=== PATIENT | female | born 1950 | race Caucasian/White ===

== ENCOUNTER 2022-04-10 11:26 | Inpatient (IN) ==
[2022-04-10] MEDS ORDERED: fentaNYL citrate 100 MCG/2 ML VIAL IV STA (11:49)
[2022-04-10] MEDS ORDERED: ONDANSETRON INJ 2 MG/ML 2 ML VIAL IV STA (11:49)
[2022-04-10] MEDS ORDERED: SODIUM CHLORIDE 0.9% 1000ML 1,000 ML IV ONE (11:49)
--- NOTE | 2022-04-10 11:55 | Emergency Department Note ---
Impression & Plan Intra-abdominal abscess, Diverticulitis, Diverticulitis of intestine with abscess ED Provider Note HISTORY OF PRESENT ILLNESS: Patient is a 71-year-old female presenting with generalized abdominal pain and constipation. Patient reports she has not had any output from her rectum or bowel movement in the last 5.5 weeks. Reports that this has happened to her in the past and she has been on a very strict constipation regimen, including Dulcolax and stool softeners and laxative, without any improvement in her symptoms. Denies any fevers. Currently complaining of progressively worsening abdominal pain over the last week or so in her bilateral lower quadrants. Patient reports dysuria over the last few days. Reports nausea over the last few weeks as well but no vomiting. She reports that she is not passing flatus. Reports an abdominal surgical history of section. ROS: Constitutional: No fever, chills, or weakness Skin: No rash or diaphoresis HENT: No headaches or congestion Eyes: No vision changes Cardio: No chest pain, palpitations or leg swelling Respiratory: No cough, wheezing or shortness of breath GI: No vomiting, diarrhea +constipation; +nausea : No polyuria +dysuria MSK: No joint or back pain Neuro: No loss of sensation, confusion, focal deficits, numbness, tingling Psychiatric: No mood changes PHYSICAL EXAM: Constitutional: Patient appears in no acute distress. HENT: Head: Normocephalic and atraumatic. Eyes: EOMI, PERRL Mouth/Throat: Mucous membranes moist. Neck: Trachea midline. Neck supple. Cardiovascular: RRR, No murmurs, rubs or gallops. Intact distal pulses. Pulmonary/Chest: No respiratory distress. Breath sounds clear and equal bilaterally. No wheezes or rales. No chest wall tenderness to palpation. Abdominal: Abdomen soft, no rebound or guarding. Decreased bowel sounds throughout abdomen. TTP in suprapubic and LLQ. Back: No midline spinal tenderness, no paraspinal tenderness, no CVA tenderness. Musculoskeletal: No edema, tenderness or deformity noted. Skin: Warm and dry. No rash, erythema, pallor or cyanosis Psychiatric: Appropriate mood and affect for situation. Neurological: Alert and keenly responsive. CN II-XII grossly intact, moving all extremities equally and fully. MDM: - Vitals signs stable. - Laboratory workup showed leukocytosis (WBC 13.35) with neutrophilic shift; stable electrolytes - UA negative for infection. - CT abdomen/pelvis with IV contrast showed multiloculated fluid collection within the midline pelvis suggestive of an abscess measuring up to 5.9 cm with associated sinus tract extending towards the sigmoid colon. Abscess abuts the vaginal cuff concerning for possible fistula connection with the vagina. Also noted to have a moderate fecal retention without obvious obstruction - Patient given IV zosyn. - Consulted general surgery at [facility]. They reported that the patient's abscess would need to be drained by IR and she will need transfer. - Patient requesting transfer to [place], closer to where her family is. - [facility] contacted. Spoke with interventional radiologist who was agre eable to performing procedure. Hospitalist Dr. Roach at [place] accepted patient for transfer at 16:47 on 04/10/2022. Awaiting bed assignment at this time. ASSESSMENT AND PLAN: Diagnosis: intra-abdominal abscess due to diverticulitis; leukocytosis Plan: transfer Past Med/Surg History Social History Smoking Status: Former smoker Feels Safe at Home: Yes Allergies Allergies Allergy/AdvReac Type Severity Reaction Status Date / Time cephalexin [From Keflex] Allergy Severe Swelling Verified 04/10/22 17:35 of Lip/Tongue/Throat ciprofloxacin [From Cipro] Allergy Severe Swelling Verified 04/10/22 17:35 of Lip/Tongue/Throat Penicillins Allergy Severe Swelling Verified 04/10/22 17:35 of Lip/Tongue/Throat Sulfa (Sulfonamide Allergy Severe Swelling Verified 04/10/22 17:35 Antibiotics) of Lip/Tongue/Throat hydromorphone [From Dilaudid] AdvReac Severe Confusion Verified 04/10/22 17:35 Home Meds Home Medications Medication Instructions Recorded Confirmed alprazolam 0.5 mg tablet 0.5 mg PO HS 04/10/22 04/10/22 alprazolam 0.5 mg tablet 0.5 mg PO QAM PRN Anxiety 04/10/22 04/10/22 ergocalciferol (vitamin D2) 1,250 1,250 mcg PO .Sundays04/10/22 04/10/22 mcg (50,000 unit) capsule (Vitamin D2) fluticasone 500 mcg-salmeterol 50 1 ea inhalation AMPM 04/10/22 04/10/22 mcg/dose blistr powdr for inhalation furosemide 40 mg tablet 40 mg PO DAILY PRN Fluid Retention 04/10/22 04/10/22 ibuprofen 800 mg tablet (IBU) 800 mg PO BID PRN arthritis pain 04/10/22 04/10/22 insulin NPH isoph U-100 human 100 40 unit subcut AMPM 04/10/22 04/10/22 unit/mL subcutaneous suspension (Humulin N NPH U-100 Insulin (isophane susp)) insulin lispro 100 unit/mL 0 unit subcut UD 04/10/22 04/10/22 subcutaneous solution (Humalog U-100 Insulin) oxycodone-acetaminophen 10 mg-325 1 - 2 tab PO Q6 PRN Pain 04/10/22 04/10/22 mg tablet potassium chloride 10 mEq 10 meq PO DAILY PRN if taking 04/10/22 04/10/22 tablet,extended release furosemide Results & Data (ED) Vital Signs Vital Signs - 24 hr 04/10/22 11:28 04/10/22 14:14 04/10/22 17:02 Temperature 36.7 C Temperature Source Temporal Artery Scan Pulse Rate 98 H Pulse Rate [Left Finger] 89 98 H Pulse Rhythm Regular Pulse Rhythm [Left Finger] Regular Regular Pulse Strength Normal Pulse Strength [Left Finger] Normal Normal Respiratory Rate 20 18 18 Respiratory Effort / Characteristics Non-Labored Spontaneous Non-Labored Spontaneous Non-Labored Respiratory Depth Normal Normal Normal Respiratory Pattern Regular Regular Regular Blood Pressure 136/54 L Blood Pressure [Right Arm] 138/63 120/72 Blood Pressure Mean 81 Blood Pressure Mean [Right Arm] 88 88 Blood Pressure Position Sitting Blood Pressure Position [Right Arm] Lying Lying Pulse Oximetry 97 97 97 Oxygen Delivery Method Room Air Room Air Room Air Sepsis Recent Fever Within 48 Hours No Sepsis New/Unexplained Change in Mental Status N/A Sepsis Action Taken by Nursing No Action Required Laboratory Data Result diagrams: 04/10/22 12:07 04/10/22 12:07 Lab Results 04/10/22 04/10/22 04/10/22 Range/Units 11:57 12:07 12:07 WBC 13.35 H (4.8-10.8) K/ul RBC 4.27 (3.93-5.22) M/uL Hgb 13.1 (12.0-16.0) g/dl Hct 37.6 (34.1-44.9) % MCV 88.1 (80.0-100.0) fL MCH 30.7 (25.0-34.0) pg MCHC 34.8 (32.0-36.0) g/dL RDW Std Deviation 38.1 (36.4-46.3) fL RDW Coeff of Vani 11.8 (11.5-14.5) % Plt Count 310 (130-400) K/uL MPV 9.6 (9.4-12.3) fL Immature Gran % (Auto) 0.4 % Neut % (Auto) 73.0 % Lymph % (Auto) 18.1 % [place] % (Auto) 7.5 % Eos % (Auto) 0.6 % Baso % (Auto) 0.4 % Neut # (Auto) 9.75 H (1.4-6.5) K/uL Lymph # (Auto) 2.42 (1.2-3.4) K/uL [place] # (Auto) 1.00 H (0.24-0.82) K/uL Eos # (Auto) 0.08 (0-0.50) K/uL Baso # (Auto) 0.05 (0-0.2) K/uL Immature Gran # (Auto) 0.05 H (0.00-0.02) K/uL Sodium 134 L (136-145) mmol/L Potassium 3.7 (3.5-5.1) mmol/L Chloride 99 (98-107) mmol/L Carbon Dioxide 29 (21-32) mmol/L Anion Gap 6 (3-11) BUN 12 (6-23) mg/dl Creatinine 0.67 (0.6-1.2) mg/dl Est Cr Clr Drug Dosing 72.9 ml/min Est GFR ( Amer) 102.5 ml/min Est GFR (Non-Af Amer) 88.4 ml/min BUN/Creatinine Ratio 17.9 (10-20) Glucose 180 H (70-99(Fasting)) mg/dl Calcium 9.4 (8.5-10.1) mg/dl Magnesium 1.9 (1.7-2.4) mg/dl Total Bilirubin 1.2 H (0.2-1.0) mg/dl AST 8 L (13-39) U/L ALT 7 (7-52) U/L Alkaline Phosphatase 57 (34-104) U/L Total Protein 6.7 (6.0-8.3) gm/dl Albumin 3.9 (3.4-5.0) gm/dl Globulin 2.8 (2.5-4.0) gm/dl Albumin/Globulin Ratio 1.4 (0.9-2) Urine Color Dark Yellow Urine Appearance Clear (Clear) Urine pH 5.5 (4.5-7.5) Ur Specific [place] 1.029 (1.000-1.030) Urine Protein 2+ H (Negative) Urine Glucose (UA) 1+ H (Negative) Urine Ketones 1+ H (Negative) Urine Blood Negative (Negative) Urine Nitrite Negative (Negative) Urine Bilirubin Negative (Negative) Urine Urobilinogen Negative (Negative) Ur Leukocyte Esterase Trace H (Negative) Urine WBC (Auto) 1-5 (0-5) /hpf Urine RBC (Auto) 0-4 (0-4) /hpf U Hyaline Cast (Auto) 10-30 H (0-5) /lpf U Epithel Cells (Auto) >30 H (0-5) /lpf Urine Bacteria (Auto) Negative (Negative) SARS-CoV-2 (PCR) (Negative) 04/10/22 Range/Units 14:47 WBC (4.8-10.8) K/ul RBC (3.93-5.22) M/uL Hgb (12.0-16.0) g/dl Hct (34.1-44.9) % MCV (80.0-100.0) fL MCH (25.0-34.0) pg MCHC (32.0-36.0) g/dL RDW Std Deviation (36.4-46.3) fL RDW Coeff of Vani (11.5-14.5) % Plt Count (130-400) K/uL MPV (9.4-12.3) fL Immature Gran % (Auto) % Neut % (Auto) % Lymph % (Auto) % [place] % (Auto) % Eos % (Auto) % Baso % (Auto) % Neut # (Auto) (1.4-6.5) K/uL Lymph # (Auto) (1.2-3.4) K/uL [place] # (Auto) (0.24-0.82) K/uL Eos # (Auto) (0-0.50) K/uL Baso # (Auto) (0-0.2) K/uL Immature Gran # (Auto) (0.00-0.02) K/uL Sodium (136-145) mmol/L Potassium (3.5-5.1) mmol/L Chloride (98-107) mmol/L Carbon Dioxide (21-32) mmol/L Anion Gap (3-11) BUN (6-23) mg/dl Creatinine (0.6-1.2) mg/dl Est Cr Clr Drug Dosing ml/min Est GFR ( Amer) ml/min Est GFR (Non-Af Amer) ml/min BUN/Creatinine Ratio (10-20) Glucose (70-99(Fasting)) mg/dl Calcium (8.5-10.1) mg/dl Magnesium (1.7-2.4) mg/dl Total Bilirubin (0.2-1.0) mg/dl AST (13-39) U/L ALT (7-52) U/L Alkaline Phosphatase (34-104) U/L Total Protein (6.0-8.3) gm/dl Albumin (3.4-5.0) gm/dl Globulin (2.5-4.0) gm/dl Albumin/Globulin Ratio (0.9-2) Urine Color Urine Appearance (Clear) Urine pH (4.5-7.5) Ur Specific [place] (1.000-1.030) Urine Protein (Negative) Urine Glucose (UA) (Negative) Urine Ketones (Negative) Urine Blood (Negative) Urine Nitrite (Negative) Urine Bilirubin (Negative) Urine Urobilinogen (Negative) Ur Leukocyte Esterase (Negative) Urine WBC (Auto) (0-5) /hpf Urine RBC (Auto) (0-4) /hpf U Hyaline Cast (Auto) (0-5) /lpf U Epithel Cells (Auto) (0-5) /lpf Urine Bacteria (Auto) (Negative) SARS-CoV-2 (PCR) POSITIVE A* (Negative) Administered Medications Discontinued Medications Fentanyl Citrate (Fentanyl Citrate 100 Mcg/2 Ml Vial) 50 mcg IV NOW STA Stop: 04/10/22 11:50 Last Admin: 04/10/22 12:16 Dose: 50 mcg Documented By: [facility] Sodium Chloride (Nss 1000ml) 1,000 mls @ 999 mls/hr IV .Q1H1M ONE Stop: 04/10/22 12:49 Last Infusion: 04/10/22 13:17 Dose: 0 mls/hr Documented By: [facility] Admin: 04/10/22 12:14 Dose: 999 mls/hr Documented By: [facility] Piperacillin Sod/Tazobactam (Sod 3.375 gm/ Dextrose) 100 ml in 115 mls @ 230 mls/hr IV NOW STA Stop: 04/10/22 14:41 Last Infusion: 04/10/22 15:11 Dose: 0 mls/hr Documented By: Admin: 04/10/22 14:31 Dose: 230 mls/hr Documented By: [facility] Ioversol (Optiray 350 100ml) 88 ml IV ONCE ONE Stop: 04/10/22 12:59 Last Admin: 04/10/22 12:59 Dose: 88 ml Documented By: [facility] Morphine Sulfate (Morphine Sulfate 4 Mg/Ml 1 Ml Carp\Vial) 4 mg IV NOW STA Stop: 04/10/22 16:46 Last Admin: 04/10/22 17:00 Dose: 4 mg Documented By: [facility] Ondansetron HCl (Ondansetron Inj 2 Mg/Ml 2 Ml Vial) 4 mg IV NOW STA Stop: 04/10/22 11:50 Last Admin: 04/10/22 12:16 Dose: 4 mg Documented By: [facility] Imaging Data Radiologist's Impression: Abdomen/Pelvis CT 04/10/22 11:[address] WITH IV CONTRAST CT DOSE: 498.68 mGy.cm HISTORY: Acute lower abdominal pain with reported constipation bilateral lower quadrant pain; no BM in 5 weeks TECHNIQUE: Multiaxial CT images of the abdomen and pelvis were performed following the IV administration of 88 cc of Optiray, A dose lowering technique was utilized adhering to the principles of ALARA. COMPARISON STUDY: None. FINDINGS: Mild subsegmental bibasilar atelectasis versus scarring. No pneumoperitoneum or pneumatosis identified. Unremarkable spleen, mildly atrophic pancreas and adrenal glands. Cholecystectomy with likely postsurgical biliary ductal dilation. The common bile duct measures 10 mm transversely. Unremarkable liver. No hepatic mass identified. Patency of the hepatic and portal veins. No renal or ureteral calculi or hydronephrosis. There is a subcentimeter calcification within the right gonadal vein, image 191 adjacent to the right ureter. Partial distention of the urinary bladder with perivesicular stranding and mucosal hyperemia. Urinary bladder wall thickening is most pronounced along its posterior and superior margins, likely reactive. Hysterectomy. Atherosclerosis of the aorta without aneurysm. There are a few prominent subcentimeter periportal and precaval lymph nodes measuring up to 9 mm, likely reactive. No bowel obstruction. 2.4 cm gastric fundal diverticulum. Colonic diverticulosis with wall thickening within the mid to distal sigmoid and rectosigmoid junction. Peripherally enhancing multiloculated fluid collection in the midline pelvis me asures 5.9 x 5.3 x 4.0 cm interposed between the rectosigmoid colon and urinary bladder extending towards the vaginal cuff. A sinus tract is noted on image 306 extending towards the sigmoid colon. Moderate colonic fecal retention. Appendectomy. Degenerative changes of the spine, pelvis and hips. No acute fracture or destructive bone lesion identified. IMPRESSION: 1. Colonic diverticulosis with findings suggestive of acute diverticulitis. Additionally, there is a multiloculated fluid collection within the midline pelvis suggestive of an abscess measuring up to 5.9 cm. Probable associated sinus tract extends from the abscess towards the sigmoid. Additionally, the abscess abuts the vaginal cuff. Correlate with clinical exam findings and pat ient history to exclude a fistulous connection with the vagina. 2. Moderate colonic fecal retention without obstruction. 3. Additional findings as above. ACT 112: Negative or not required by law. The above report was generated using voice recognition software. It may contain grammatical, syntax or spelling errors. Electronically signed by: Travis Soto M.D. 04/10/2022 1:14 PM Discharge Plan Visit Data Chief Complaint: Unable to Void Stated Complaint: NAUSEA, ABDOMINAL PAIN ED Provider: Karon Iglesias Discharge Problem: Intra-abdominal abscess, Diverticulitis, Diverticulitis of intestine with abscess Patient Disposition: Transfer Acute Care Hospital Forms Stand Alone Forms: My [place] Prescriptions Prescriptions: No Action fluticasone propion-salmeterol 500-50 mcg/dose blister with device 1 ea INHALATION AMPM Rx Instructions: 12 hours apart alprazolam 0.5 mg tablet 0.5 mg PO QAM PRN (Reason: Anxiety) insulin lispro [Humalog U-100 Insulin] 100 unit/mL solution 0 unit subcut UD Rx Instructions: inject 10 units with breakfast and 26 with supper oxycodone-acetaminophen 10-325 mg tablet 1 - 2 tab PO Q6 PRN (Reason: Pain) ergocalciferol (vitamin D2) [Vitamin D2] 1,250 mcg (50,000 unit) capsule 1,250 mcg PO .SUNDAYS alprazolam 0.5 mg tablet 0.5 mg PO HS Humulin N NPH U-100 Insulin 100 unit/mL suspension 40 unit SUBCUT AMPM furosemide 40 mg tablet 40 mg PO DAILY PRN (Reason: Fluid Retention) ibuprofen [IBU] 800 mg tablet 800 mg PO BID PRN (Reason: arthritis pain) potassium chloride 10 mEq tablet extended release 10 meq PO DAILY PRN (Reason: if taking furosemide) Referrals Referrals: PCP,NO [Primary Care Provider] -
[2022-04-10 12:21] LABS: Appearance Urine Clear (Clear); Bacteria Urine Automated Negative (Negative); Bilirubin Urine Negative (Negative); Blood Urine Negative (Negative); Color Urine Dark Yellow; Epithelial Cell Urine Auto >30 /lpf (0-5); Glucose Urine UA 1+ (Negative); Ketones Urine 1+ (Negative); Leukocyte Esterase Urine Trace (Negative); Nitrite Urine Negative (Negative); Protein Urine 2+ (Negative); RBC Urine Automated 0-4 /hpf (0-4); Specific Gravity Urine 1.029 (1.000-1.030); Urobilinogen Urine Negative (Negative); pH Urine 5.5 (4.5-7.5)
[2022-04-10 12:24] LABS: Basophils # (auto) 0.05 K/uL (0-0.2); Basophils % (auto) 0.4 %; Eosinophils # (auto) 0.08 K/uL (0-0.50); Eosinophils % (auto) 0.6 %; Hematocrit (blood only) 37.6 % (34.1-44.9); Hemoglobin 13.1 g/dl (12.0-16.0); Immature Granulocytes # (auto) 0.05 K/uL (0.00-0.02); Immature Granulocytes % (auto) 0.4 %; Lymphocytes # (auto) 2.42 K/uL (1.2-3.4); Lymphocytes % (auto) 18.1 %; Mean Corpuscular Hemoglobin 30.7 pg (25.0-34.0); Mean Corpuscular Hgb Conc 34.8 g/dL (32.0-36.0); Mean Corpuscular Volume 88.1 fL (80.0-100.0); Mean Platelet Volume 9.6 fL (9.4-12.3); Monocytes % (auto) 7.5 %; Neutrophils # (auto) 9.75 K/uL (1.4-6.5); Platelet Count 310 K/uL (130-400); RDW Coefficient of Variation 11.8 % (11.5-14.5); RDW Standard Deviation 38.1 fL (36.4-46.3); Red Blood Count 4.27 M/uL (3.93-5.22); White Blood Count 13.35 K/ul (4.8-10.8)
[2022-04-10 12:44] LABS: Albumin Globulin Ratio 1.4 (0.9-2); Albumin Level 3.9 gm/dl (3.4-5.0); BUN Creatinine Ratio 17.9 (10-20); Bilirubin,Total 1.2 mg/dl (0.2-1.0); Calcium 9.4 mg/dl (8.5-10.1); Creatinine Clr Calc Pharmacy 72.9 ml/min; Est GFR (African American) 102.5 ml/min; Est GFR (Non-African American) 88.4 ml/min; Globulin 2.8 gm/dl (2.5-4.0); Magnesium 1.9 mg/dl (1.7-2.4); Potassium 3.7 mmol/L (3.5-5.1); Total Protein 6.7 gm/dl (6.0-8.3)
[2022-04-10] MEDS ORDERED: OPTIRAY 350 100ml IV ONE (12:58)
--- NOTE | 2022-04-10 13:17 | CT Scan Report ---
ABDOMEN AND PELVIS CT WITH IV CONTRAST CT DOSE: 498.68 mGy.cm HISTORY: Acute lower abdominal pain with reported constipation bilateral lower quadrant pain; no BM in 5 weeks TECHNIQUE: Multiaxial CT images of the abdomen and pelvis were performed following the IV administrat ion of 88 cc of Optiray, A dose lowering technique was utilized adhering to the principles of ALARA. COMPARISON STUDY: None. FINDINGS: Mild subsegmental bibasilar atelectasis versus scarring. No pneumoperitoneum or pneumatosis identified. Unremarkable spleen, mildly atrophic pancreas and adrenal glands. Cholecystectomy with l ikely postsurgical biliary ductal dilation. The common bile duct measures 10 mm transversely. Unremar kable liver. No hepatic mass identified. Patency of the hepatic and portal veins. No renal or ureteral calculi or hydronephrosis. There is a subcentimeter calcification within the rig ht gonadal vein, image 191 adjacent to the right ureter. Partial distention of the urinary bladder wi th perivesicular stranding and mucosal hyperemia. Urinary bladder wall thickening is most pronounced along its posterior and superior margins, likely reactive. Hysterectomy. Atherosclerosis of the aorta without aneurysm. There are a few prominent subcentimeter periportal and precaval lymph nodes measur ing up to 9 mm, likely reactive. No bowel obstruction. 2.4 cm gastric fundal diverticulum. Colonic diverticulosis with wall thickening within the mid to distal sigmoid and rectosigmoid junction. Peripherally enhancing multiloculated fl uid collection in the midline pelvis measures 5.9 x 5.3 x 4.0 cm interposed between the rectosigmoid colon and urinary bladder extending towards the vaginal cuff. A sinus tract is noted on image 306 ext ending towards the sigmoid colon. Moderate colonic fecal retention. Appendectomy. Degenerative change s of the spine, pelvis and hips. No acute fracture or destructive bone lesion identified. IMPRESSION: 1. Colonic diverticulosis with findings suggestive of acute diverticulitis. Additionally, there is a multiloculated fluid collection within the midline pelvis suggestive of an abscess measuring up to 5. 9 cm. Probable associated sinus tract extends from the abscess towards the sigmoid. Additionally, the abscess abuts the vaginal cuff. Correlate with clinical exam findings and patient history to exclude a fistulous connection with the vagina. 2. Moderate colonic fecal retention without obstruction. 3. Additional findings as above. ACT 112: Negative or not required by law. The above report was generated using voice recognition software. It may contain grammatical, syntax o r spelling errors. Electronically signed by: Travis Soto M.D. 04/10/2022 1:14 PM
[2022-04-10] MEDS ORDERED: PIPERACILLIN/TAZOBACTAM 3.375 GM in DEXTROSE 5% 100 ML/100 ML BAG IV STA (14:12)
[2022-04-10] MEDS ORDERED: MoRPHine SULFATE 4 MG/ML 1 ML CARP\\VIAL IV STA (16:45)
[2022-04-10] MEDS ORDERED: SODIUM CHLORIDE 0.9% 1000ML 1,000 ML IV STA (17:55)
[2022-04-10] MEDS ORDERED: MoRPHine SULFATE 4 MG/ML 1 ML CARP\\VIAL IV PRN (17:59)
[2022-04-10] MEDS ORDERED: ALBUT/IPRATROP 3MG/0.5MG NEB 3 ML VIAL NEB STA (19:19)
--- NOTE | 2022-04-10 20:30 | History & Physical Report ---
Date of Service April 10, 2022 Assessment & Plan (1) Diverticulitis of intestine with abscess: Plan: -Admit to PCU -Patient is currently afebrile, hemodynamically stable, and stable on RA -Found to have complicated diverticulitis with 5.9 cm abscess and possible fistula tract to the vagina -Was accepted to [facility] for IR intervention but will be admitted here for further treatment until she has a bed -Was given 1 dose of Zosyn in the ED, will continue q6h here moving forward -Will continue IV fluids while NPO with Lactated Ringer's at 100 mL/hr -IV tylenol and Morphine for pain -Keep NPO -AM CBC and BMP (2) COVID-19: Plan: -States she had covid over 1 month ago -No current symptoms, stable on RA -Did test positive but do not think that she is infectious at this time -Will need to double check with infection control that she can come out of isolation (3) DM II (diabetes mellitus, type II), controlled: Plan: -Noted to be on NPH and Humalog at home with possible reaction to Novolog in the past -Will monitor BSG q6h while NPO -Spoke with pharmacy regarding insulin regimen and options, appreciate their help -Will continue her on NPH but will decrease her dose from 40 units AMHS to 20 units AMHS while she is NPO -Continue with regular human insulin with correction factor of 60 and carb ration of 20. Pharmacy thinks there is a very low risk of cross reaction between Novolog and regular human insulin with her reported adverse reaction (4) Anxiety: Plan: -Will hold xanax for now as she's NPO -If needed can order prn IV ativan but she is currently calm (5) Rheumatoid arthritis: Plan: -Not on medication at this time (6) Lyme disease: Plan: -It appears that she had at least 2-3 weeks of treatment with Doxycycline per her history -No current symptoms or skin manifestations -Will hold additional Doxycycline for now (7) Asthma: Plan: -Continue breathing treatments (8) Vitamin D deficiency: Plan: -Continue vitamin D Plan The patient was discussed with Dr. Holland at the time of the admission History of Present Illness Chief Complaint: Abdominal pain/constipating Primary Care Provider: NO PCP Lidia is a 71 year old female with a PMH significant for Covid + in January 2022, DM II, Asthma, anxiety, vitamin D deficiency, B12 deficiency, RA, recently diagnosed lyme disease in February has been on Doxycycline until early March due to abdominal pain, who presented to [facility] ED on 04/10/22 with complaints of continue abdominal pain and constipation for the past 5 weeks. In the ED the patient was found to be afebrile, hemodynamically stable, and stable on RA. Labs were remarkable for a leukocytosis of 13.35, with left shift of 9.75, Hgb of 13.1, stable renal function at 0.67, stable electrolytes, glucose of 180, total bili of 1.2, stable renal function and covid positive. CT of the abdomen and pelvis with IV contrast shows "1. Colonic diverticulosis with findings suggestive of acute diverticulitis. Additionally, there is a multiloculated fluid collection within the midline pelvis suggestive of an abscess measuring up to 5.9 cm. Probable associated sinus tract extends from the abscess towards the sigmoid. Additionally, the abscess abuts the vaginal cuff. Correlate with clinical exam findings and patient history to exclude a fistulous connection with the vagina. 2. Moderate colonic fecal retention without ob struction. 3. Additional findings as above.". Per discussions with the ED staff, they spoke with our surgical team technical solutions consultant who recommended transfer to [facility] for IR intervention. The patient was accepted at [facility], however, there will be a delay until she will have a ready bed. We were asked to admit the patient for further treatment and monitoring until she can be transferred. Prior to admission the patient was given a loading dose of Zosyn, albuterol treatment, 50 mcg of fentanyl, 4 mg IV zofran, 4 mg IV morphine, and 1L NSS bolus. At the time of the exam the patient was resting comfortably in bed in no acute distress. She states that she started developing abdominal pain approximately one month ago. Her abdominal pain has been in the bilateral lower abdominal remy, she describes it as a sensation of fullness/cramping. It is less intense at rest and exacerbated with movement. She states that she has not had a bowel movement in approximately 5-6 weeks. She has a history of chronic constipation, due to this she regularly aldridge on here calender when she has a bowel movement to keep track. She notes that she has still been passing gas as of today. Because she has been without a bowel movement for that long and because of he ongoing abdominal pain she came to the ED. Regarding her recent Lyme Disease infection, she tells me that she was diagnosed early last month after breaking out in a rash, they were able to find the tick in her pannus. She states that she was being treated with Doxycycline, however, she stopped taking the Doxycycline early this month due to her worsening abdominal pain. When discussing previous allergies and drug reactions she tells me that she can only have [employer] Insulin. When we discussed more she tells me that she had co nvulsions during admission to a previous hospital while being given Novolog. She currently is on NPH and Humalog at home. I spoke to her regarding code status, the patient would like to be a full code. If she could not make decisions for herself, her Daughter/POA, Carmen Au ([phone]), would make decisions for her. Please refer to Dr. Holland's attestation for any changes to the treatment plan. Allergies Allergy/AdvReac Type Severity Reaction Status Date / Time cephalexin [From Keflex] Allergy Severe Swelling Verified 04/10/22 17:35 of Lip/Tongue/Throat ciprofloxacin [From Cipro] Allergy Severe Swelling Verified 04/10/22 17:35 of Lip/Tongue/Throat Penicillins Allergy Severe Swelling Verified 04/10/22 17:35 of Lip/Tongue/Throat Sulfa (Sulfonamide Allergy Severe Swelling Verified 04/10/22 17:35 Antibiotics) of Lip/Tongue/Throat hydromorphone [From Dilaudid] AdvReac Severe Confusion Verified 04/10/22 17:35 Home Medications Medication Instructions Recorded Confirmed Type alprazolam 0.5 mg tablet 0.5 mg PO HS 04/10/22 04/10/22 History alprazolam 0.5 mg tablet 0.5 mg PO QAM PRN Anxiety 04/10/22 04/10/22 History ergocalciferol (vitamin D2) 1,250 1,250 mcg PO .Sundays04/10/22 04/10/22 History mcg (50,000 unit) capsule (Vitamin D2) fluticasone 500 mcg-salmeterol 50 1 ea inhalation AMPM 04/10/22 04/10/22 History mcg/dose blistr powdr for inhalation furosemide 40 mg tablet 40 mg PO DAILY PRN Fluid Retention 04/10/22 04/10/22 History ibuprofen 800 mg tablet (IBU) 800 mg PO BID PRN arthritis pain 04/10/22 04/10/22 History insulin NPH isoph U-100 human 100 40 unit subcut AMPM 04/10/22 04/10/22 History unit/mL subcutaneous suspension (Humulin N NPH U-100 Insulin (isophane susp)) insulin lispro 100 unit/mL 0 unit subcut UD 04/10/22 04/10/22 History subcutaneous solution (Humalog U-100 Insulin) oxycodone-acetaminophen 10 mg-325 1 - 2 tab PO Q6 PRN Pain 04/10/22 04/10/22 History mg tablet potassium chloride 10 mEq 10 meq PO DAILY PRN if taking 04/10/22 04/10/22 History tablet,extended release furosemide Past Med/Surg History Social History Smoking Status: Former smoker Second Hand Exposure: No; Do You Dip or Chew Tobacco: No; Tobacco Cessation Education Requested by Patient: No Hx Alcohol Use: No Hx Substance Use: No Communication Ability: Effective Current Living Situation: Alone Other Information That Helps Us Care for You: No Feels Safe at Home: Yes Safety Concerns: Feels Safe At This Time Assistive Devices: None Review of Systems Review of Systems: Denies current fever, chills, headache, changes in vision, hearing, taste, and smell, chest pain, SOB, cough, vomiting, diarrhea, hematemesis, melena, dysuria, hematuria, and recent falls. All systems have been reviewed and are otherwise negative. Physical Exam Physical Exam: Physical Exam: General: In no acute distress, stated age, well-nourished, non-toxic appearing HEENT: Normocephalic, atraumatic, no scleral icterus, pupils around round, symmetrical, and reactive to light, dry mucus membranes, trachea midline, no thyromegaly Chest/Pulm: No respiratory distress, symmetrical chest expansion, clear breath sounds throughout Cardiac: RRR, no murmurs noted Abdomen: Negative for ascites and bruising, hypoactive bowel sounds, patient is tender to percussion over the lower abdominal remy,soft, non-tender to palpation in the upper abdominal remy but tender to palpation over the lower abdominal remy. Musculoskeletal: Symmetrical and without signs of acute trauma, upper and lower extremities with full ROM, no atrophy, spasticity, or flaccidity Extremities: Radial, dorsalis pedis, and posterior tibial pulses are intact and symmetrical, no edema noted in the BL LE's Skin: Warm, dry, no rashes , lesions, or scars noted Neuro: Alert and oriented to person, place, month, year, and president, no focal defects, CN II-XII tested and intact, finger to nose test negative, no tremors noted Psych: No acute distress, calm and cooperative during the exam Results & Data Results & Data ([facility]) Vital Signs (Past 12 Hours) Vital Signs Temp Pulse Pulse Resp BP BP Pulse Ox 04/10/22 19:00 92 H 107/50 L 96 04/10/22 17:02 98 H 18 120/72 97 04/10/22 14:14 89 18 138/63 97 04/10/22 11:28 36.7 C 98 H 20 136/54 L 97 O2 Del Method 04/10/22 19:00 Room Air 04/10/22 17:02 Room Air 04/10/22 14:14 Room Air 04/10/22 11:28 Room Air Laboratory Results Abnormal lab results 04/10/22 04/10/22 04/10/22 Range/Units 11:57 12:07 12:07 WBC 13.35 H (4.8-10.8) K/ul Neut # (Auto) 9.75 H (1.4-6.5) K/uL [place] # (Auto) 1.00 H (0.24-0.82) K/uL Immature Gran # (Auto) 0.05 H (0.00-0.02) K/uL Sodium 134 L (136-145) mmol/L Glucose 180 H (70-99(Fasting)) mg/dl Total Bilirubin 1.2 H (0.2-1.0) mg/dl AST 8 L (13-39) U/L Urine Protein 2+ H (Negative) Urine Glucose (UA) 1+ H (Negative) Urine Ketones 1+ H (Negative) Ur Leukocyte Esterase Trace H (Negative) U Hyaline Cast (Auto) 10-30 H (0-5) /lpf U Epithel Cells (Auto) >30 H (0-5) /lpf SARS-CoV-2 (PCR) (Negative) 04/10/22 Range/Units 14:47 WBC (4.8-10.8) K/ul Neut # (Auto) (1.4-6.5) K/uL [place] # (Auto) (0.24-0.82) K/uL Immature Gran # (Auto) (0.00-0.02) K/uL Sodium (136-145) mmol/L Glucose (70-99(Fasting)) mg/dl Total Bilirubin (0.2-1.0) mg/dl AST (13-39) U/L Urine Protein (Negative) Urine Glucose (UA) (Negative) Urine Ketones (Negative) Ur Leukocyte Esterase (Negative) U Hyaline Cast (Auto) (0-5) /lpf U Epithel Cells (Auto) (0-5) /lpf SARS-CoV-2 (PCR) POSITIVE A* (Negative) Diagnostic Findings Abdomen/Pelvis CT 04/10/22 11:[address] WITH IV CONTRAST CT DOSE: 498.68 mGy.cm HISTORY: Acute lower abdominal pain with reported constipation bilateral lower quadrant pain; no BM in 5 weeks TECHNIQUE: Multiaxial CT images of the abdomen and pelvis were performed following the IV administration of 88 cc of Optiray, A dose lowering technique was utilized adhering to the principles of ALARA. COMPARISON STUDY: None. FINDINGS: Mild subsegmental bibasilar atelectasis versus scarring. No pneumoperitoneum or pneumatosis identified. Unremarkable spleen, mildly atrophic pancreas and adrenal glands. Cholecystectomy with likely postsurgical biliary ductal dilation. The common bile duct measures 10 mm transversely. Unremarkable liver. No hepatic mass identified. Patency of the hepatic and portal veins. No renal or ureteral calculi or hydronephrosis. There is a subcentimeter calcification within the right gonadal vein, image 191 adjacent to the right ureter. Partial distention of the urinary bladder with perivesicular stranding and mucosal hyperemia. Urinary bladder wall thickening is most pronounced along its posterior and superior margins, likely reactive. Hysterectomy. Atherosclerosis of the aorta without aneurysm. There are a few prominent subcentimeter periportal and precaval lymph nodes measuring up to 9 mm, likely reactive. No bowel obstruction. 2.4 cm gastric fundal diverticulum. Colonic diverticulosis with wall thickening within the mid to distal sigmoid and rectosigmoid junction. Peripherally enhancing multiloculated fluid collection in the midline pelvis measures 5.9 x 5.3 x 4.0 cm interposed between the rectosigmoid colon and urinary bladder extending towards the vaginal cuff. A sinus tract is noted on image 306 extending towards the sigmoid colon. Moderate colonic fecal retention. Appendectomy. Degenerative changes of the spine, pelvis and hips. No acute fracture or destructive bone lesion identified. IMPRESSION: 1. Colonic diverticulosis with findings suggestive of acute diverticulitis. Additionally, there is a multiloculated fluid collection within the midline pelvis suggestive of an abscess measuring up to 5.9 cm. Probable associated sinus tract extends from the abscess towards the sigmoid. Additionally, the abscess abuts the vaginal cuff. Correlate with clinical exam findings and patient history to exclude a fistulous connection with the vagina. 2. Moderate colonic fecal retention without obstruction. 3. Additional findings as above. ACT 112: Negative or not required by law. The above report was generated using voice recognition software. It may contain grammatical, syntax or spelling errors. Electronically signed by: Travis Soto M.D. 04/10/2022 1:14 PM ECG Additional Comments: No ECG available at the time of admission, will obtain one now Code Status & VTE Plan Code Status Full Code VTE Prophylaxis Plan VTE Prophylaxis will be ordered: Yes Supervising Physician Co-Signing Physician Notes Attending addendum: I have physically seen this patient, have supervised the BLANCA's activities, and agree with the H&P unless as otherwise noted. Assessment and Plan: Diverticulitis/pelvic abscess- 5.9 cm pelvic abscess with possible fistula tract Excepted to [facility] for IR, however, no bed available at this time We admitted to PCU Zosyn 4.5 g IV every 6 hours N.p.o. LR 100 mils per hour IV Tylenol as needed for mild pain or fever Morphine IV as needed for moderate to severe pain Follow serial CBC with differential and chemistry profile COVID-19 positivity- Had initial diagnosis over 1 month ago, without current symptoms Keep on precautions, however, no direct treatment needed Diabetes mellitus- Reduce home NPH from 40 to 20 units subcu twice daily Placed on Accu-Cheks every 6 hours with SSI Remaining orders and notations as noted PG Care Time/CCT Total # of Minutes Spent Total Time Spent with Patient: Total time spent is greater than 50% in coordination of care (as documented) at patient's floor/unit and/or counseling patient: [place] [address] Initial Inpt Care Lvl 3 Patient Type Established Medical Decision Making High Complexity Diagnoses Diverticulitis of intestine with abscess K57.80 COVID-19 U07.1 DM II (diabetes mellitus, type II), controlled E11.9 Anxiety F41.9 Rheumatoid arthritis M06.9 Lyme disease A69.20 Asthma J45.909 Vitamin D deficiency E55.9
[2022-04-10] MEDS ORDERED: ACETAMINOPHEN 1,000 MG/100 ML VIAL IV PRN (20:50)
[2022-04-10] MEDS ORDERED: FAMOTIDINE 20 MG in SYRINGE 3 ML IV ONE (21:00)
[2022-04-10] MEDS ORDERED: PIPERACILLIN/TAZOBACTAM 3.375 GM in DEXTROSE 5% 100 ML IV ONE (21:00)
[2022-04-10] MEDS ORDERED: FAMOTIDINE 20MG/5ML IV PUSH IV ONE (21:01)
[2022-04-10] MEDS ORDERED: PIPERACILLIN/TAZOBACTAM 4.5 GM/120ML D5W IV ONE (21:01)
[2022-04-10] MEDS ORDERED: GLUCOSE 10 TAB/TUBE PO PRN ×2 (21:44→22:03)
[2022-04-10] MEDS ORDERED: GLUCAGON FOR INJ 1 MG VIAL SQ PRN ×2 (21:44→22:03)
[2022-04-10] MEDS ORDERED: GLUCOSE 40% GEL 15 GM TUBE PO PRN ×2 (21:44→22:03)
[2022-04-10] MEDS ORDERED: CARBOHYDRATES FOR HYPOGLYCEMIA PO PRN ×2 (21:44→22:03)
[2022-04-10] MEDS ORDERED: DEXTROSE 50% 50 ML SYRINGE IV PRN ×2 (21:44→22:03)
[2022-04-10] MEDS ORDERED: INSULIN HUMAN NPH SQ SCH (22:03)
[2022-04-10] MEDS: LACTATED RINGER'S 1,000 ML IV SCH (22:43)
[2022-04-10] MEDS: MoRPHine SULFATE 4 MG/ML 1 ML CARP\\VIAL IV PRN (22:51)
[2022-04-10] MEDS ORDERED: ALPRAZolam 0.5 MG TABLET PO PRN (23:11)
[2022-04-10] MEDS ORDERED: ALPRAZolam 0.5 MG TABLET PO SCH (23:15)
[2022-04-10] MEDS: INSULIN HUMAN NPH SQ SCH (23:21)
[2022-04-11] MEDS: MoRPHine SULFATE 4 MG/ML 1 ML CARP\\VIAL IV PRN ×3 (02:33→12:46)
[2022-04-11] MEDS: INSULIN HUMAN REGULAR SC SCH ×3 (05:24→11:22)
[2022-04-11] MEDS ORDERED: PIPERACILLIN/TAZOBACTAM 3.375 GM in DEXTROSE 5% 100 ML IV SCH ×2 (06:00→11:00)
[2022-04-11 06:45] LABS: Hematocrit (blood only) 37.3 % (34.1-44.9); Hemoglobin 12.6 g/dl (12.0-16.0); Mean Corpuscular Hgb Conc 33.8 g/dL (32.0-36.0); Mean Corpuscular Volume 91.6 fL (80.0-100.0); Mean Platelet Volume 9.5 fL (9.4-12.3); Platelet Count 313 K/uL (130-400); RDW Coefficient of Variation 11.8 % (11.5-14.5); RDW Standard Deviation 39.9 fL (36.4-46.3); Red Blood Count 4.07 M/uL (3.93-5.22); White Blood Count 12.86 K/ul (4.8-10.8)
[2022-04-11 07:09] LABS: Albumin Globulin Ratio 1.3 (0.9-2); Albumin Level 3.6 gm/dl (3.4-5.0); BUN Creatinine Ratio 11.6 (10-20); Bilirubin,Total 1.4 mg/dl (0.2-1.0); Calcium 9.1 mg/dl (8.5-10.1); Creatinine Clr Calc Pharmacy 69.9 ml/min; Est GFR (African American) 101.5 ml/min; Est GFR (Non-African American) 87.6 ml/min; Globulin 2.7 gm/dl (2.5-4.0); Total Protein 6.3 gm/dl (6.0-8.3)
[2022-04-11] MEDS: LACTATED RINGER'S 1,000 ML IV SCH (07:23)
--- NOTE | 2022-04-11 07:57 | Hospitalist Progress Note ---
Date of Service April 11, 2022 Assessment & Plan (1) Diverticulitis of intestine with abscess: Plan: Pt is a 71 yo female with PMH of DM, recent lyme disease, RA, asthma, and anxiety presenting to the hospital with 5 weeks of constipation and associated nausea. Diverticulitis of intestine with abscess -Patient is currently afebrile, hemodynamically stable, and stable on RA -Found to have complicated diverticulitis with 5.9 cm abscess and possible fistula tract to the vagina -Was accepted to [facility] for IR intervention but will be admitted here for further treatment until she has a bed -Was given 1 dose of Zosyn in the ED, will continue q6h here moving forward -Will continue IV fluids while NPO with Lactated Ringer's at 100 mL/hr -IV tylenol and Morphine for pain -Keep NPO -AM CBC and BMP COVID-19 -States she had covid over 1 month ago -No current symptoms, stable on RA -Did test positive but do not think that she is infectious at this time -Will need to double check with infection control that she can come out of isolation DM II (diabetes mellitus, type II), controlled -Noted to be on NPH and Humalog at home with possible reaction to Novolog in the past -Will monitor BSG q6h while NPO -Spoke with pharmacy regarding insulin regimen and options, appreciate their help -Will continue her on NPH but will decrease her dose from 40 units AMHS to 20 units AMHS while she is NPO -Continue with regular human insulin with correction factor of 60 and carb ration of 20. Pharmacy thinks there is a very low risk of cross reaction between Novolog and regular human insulin with her reported adverse reaction Anxiety -Will hold xanax for now as she's NPO -If needed can order prn IV ativan but she is currently calm Rheumatoid arthritis -Not on medication at this time Lyme disease -It appears that she had at least 2-3 weeks of treatment with Doxycycline per her history -No current symptoms or skin manifestations -Will hold additional Doxycycline for now Asthma -Continue breathing treatments Vitamin D deficiency -Continue vitamin D (2) Rheumatoid arthritis: (3) COVID-19: (4) Vitamin D deficiency: (5) Lyme disease: (6) DM II (diabetes mellitus, type II), controlled: (7) Anxiety: Plan FEN: NPO, LR 100 mL/hr DVT ppx: SCDs Code: full Dispo: PCU, awaiting transfer to [facility] for IR for abscess Admission and Anticipated Discharge Date Admission Date: April 10, 2022 Subjective Pt is a 71 yo female with PMH of DM, recent lyme disease, RA, asthma, and anxiety presenting to the hospital with 5 weeks of constipation and associated nausea. Physical Exam Constitutional: NAD. Vitals WNL. Eyes: no conjunctival abnormality Respiratory: CTA bilaterally. No rhonchi, wheezing, or crackles. Non labored breathing. Cardiovascular: RRR. No murmur noted. No LL edema. Gastrointestinal (Abdomen): Nontender, +BS. No masses noted. Skin: no rashes, warm and dry Psychiatric: Alert. Mood and affect congruent. Results & Data Results & Data ([facility]) Vital Signs (Past 12 Hours) Vital Signs Temp Pulse Resp BP Pulse Ox O2 Del Method 04/11/22 07:26 37.4 C 93 H 16 125/66 94 Room Air 04/11/22 03:04 36.7 C 90 18 116/57 L 94 Room Air 04/10/22 22:18 37.6 C H 98 H 20 120/58 L 98 Room Air Resident Activity Tracking Resident Involvement: Resident Care Provided Care Provided: Adult Hospital Medicine
[2022-04-11] MEDS ORDERED: FAMOTIDINE 20 MG in SYRINGE 3 ML IV SCH (09:00)
[2022-04-11] MEDS ORDERED: FLUTICASONE/VILANTEROL 200/25MCG 14 PUFFS/INHALER INH SCH (09:00)
[2022-04-11] MEDS: INSULIN HUMAN NPH SQ SCH (09:17)
[2022-04-11] MEDS ORDERED: MoRPHine SULFATE 2 MG/ML CARP IV ONE (10:44)
--- NOTE | 2022-04-11 12:57 | Discharge Summary ---
Date of Service April 11, 2022 Admission HPI Per Admitting Provider Lidia is a 71 year old female with a PMH significant for Covid + in January 2022, DM II, Asthma, anxiety, vitamin D deficiency, B12 deficiency, RA, recently diagnosed lyme disease in February has been on Doxycycline until early March due to abdominal pain, who presented to the [facility] ED on 04/10/22 with complaints of continue abdominal pain and constipation for the past 5 weeks. In the ED the patient was found to be afebrile, hemodynamically stable, and stable on RA. Labs were remarkable for a leukocytosis of 13.35, with left shift of 9.75, Hgb of 13.1, stable renal function at 0.67, stable electrolytes, glucose of 180, total bili of 1.2, stable renal function and covid positive. CT of the abdomen and pelvis with IV contrast shows "1. Colonic diverticulosis with findings suggestive of acute diverticulitis. Additionally, there is a multiloculated fluid collection within the midline pelvis suggestive of an abscess measuring up to 5.9 cm. Probable associated sinus tract extends from the abscess towards the sigmoid. Additionally, the abscess abuts the vaginal cuff. Correlate with clinical exam findings and patient history to exclude a fistulous connection with the vagina. 2. Moderate colonic fecal retention without obstruction. 3. Additional findings as above.". Per discussions with the ED staff, they spoke with our surgical team fashion buying internship who recommended transfer to [facility] for IR intervention. The patient was accepted at [facility], however, there will be a delay until she will have a ready bed. We were asked to admit the patient for further treatment and monitoring until she can be transferred. Prior to admission the patient was given a loading dose of Zosyn, albuterol treatment, 50 mcg of fentanyl, 4 mg IV zofran, 4 mg IV morphine, and 1L NSS bolus. At the time of the exam the patient was resting comfortably in bed in no acute distress. She states that she started developing abdominal pain approximately one month ago. Her abdominal pain has been in the bilateral lower abdominal remy, she describes it as a sensation of fullness/cramping. It is less intense at rest and exacerbated with movement. She states that she has not had a bowel movement in approximately 5-6 weeks. She has a history of chronic constipation, due to this she regularly aldridge on here calender when she has a bowel movement to keep track. She notes that she has still been passing gas as of today. Because she has been without a bowel movement for that long and because of he ongoing abdominal pain she came to the ED. Regarding her recent Lyme Disease infection, she tells me that she was diagnosed early last month after breaking out in a rash, they were able to find the tick in her pannus. She states that she was being treated with Doxycycline, however, she stopped taking the Doxycycline early this month due to her worsening abdominal pain. When discussing previous allergies and drug reactions she tells me that she can only have [employer] Insulin. When we discussed more she tells me that she had convulsions during admission to a previous hospital while being given Novolog. She currently is on NPH and Humalog at home. I spoke to her regarding code status, the patient would like to be a full code. If she could not make decisions for herself, her Daughter/POA, Carmen Au ([phone]), would make decisions for her. Please refer to Dr. Holland's attestation for any changes to the treatment plan. Admission Exam Per Admitting Provider General:In no acute distress, stated age, well-nourished, non-toxic appearing HEENT:Normocephalic, atraumatic, no scleral icterus, pupils around round, symmetrical, and reactive to light, dry mucus membranes, trachea midline, no thyromegaly Chest/Pulm:No respiratory distress, symmetrical chest expansion, clear breath sounds throughout Cardiac:RRR, no murmurs noted Abdomen:Negative for ascites and bruising, hypoactive bowel sounds, patient is tender to percussion over the lower abdominal remy,soft, non-tender to palpation in the upper abdominal remy but tender to palpation over the lower abdominal remy. Musculoskeletal:Symmetrical and without signs of acute trauma, upper and lower extremities with full ROM, no atrophy, spasticity, or flaccidity Extremities:Radial, dorsalis pedis, and posterior tibial pulses are intact and symmetrical, no edema noted in the BL LE's Skin:Warm, dry, no rashes , lesions, or scars noted Neuro:Alert and oriented to person, place, month, year, and president, no focal defects, CN II-XII tested and intact, finger to nose test negative, no tremors noted Psych:No acute distress, calm and cooperative during the exam Principal Diagnosis diverticulitis w/ abscess Discharge Exam Constitutional NAD. Vitals WNL. Respiratory CTA bilaterally. No rhonchi, wheezing, or crackles. Cardiovascular RRR. No murmurs noted. No LE edema. Gastrointestinal (Abdomen) Tender upon palpation of right and left lower quadrants. No guarding. Soft. +BS. No masses noted. Psychiatric Alert. Mood and affect congruent. Discharge Data Allergies Allergy/AdvReac Type Severity Reaction Status Date / Time cephalexin [From Keflex] Allergy Severe Swelling Verified 04/10/22 17:35 of Lip/Tongue/Throat ciprofloxacin [From Cipro] Allergy Severe Swelling Verified 04/10/22 17:35 of Lip/Tongue/Throat Penicillins Allergy Severe Swelling Verified 04/10/22 17:35 of Lip/Tongue/Throat Sulfa (Sulfonamide Allergy Severe Swelling Verified 04/10/22 17:35 Antibiotics) of Lip/Tongue/Throat hydromorphone [From Dilaudid] AdvReac Severe Confusion Verified 04/10/22 17:35 Consultations 04/10/22 20:23 ED Decision to Admit Stat Ordered Studies 04/10/22 11:49 CT abd pelvis IV con only Stat Abdomen/Pelvis CT 04/10/22 11:[address] WITH IV CONTRAST CT DOSE: 498.68 mGy.cm HISTORY: Acute lower abdominal pain with reported constipation bilateral lower quadrant pain; no BM in 5 weeks TECHNIQUE: Multiaxial CT images of the abdomen and pelvis were performed following the IV administration of 88 cc of Optiray, A dose lowering technique was utilized adhering to the principles of ALARA. COMPARISON STUDY: None. FINDINGS: Mild subsegmental bibasilar atelectasis versus scarring. No pneumoperitoneum or pneumatosis identified. Unremarkable spleen, mildly atrophic pancreas and adrenal glands. Cholecystectomy with likely postsurgical biliary ductal dilation. The common bile duct measures 10 mm transversely. Unremarkable liver. No hepatic mass identified. Patency of the hepatic and portal veins. No renal or ureteral calculi or hydronephrosis. There is a subcentimeter calcification within the right gonadal vein, image 191 adjacent to the right ureter. Partial distention of the urinary bladder with perivesicular stranding and mucosal hyperemia. Urinary bladder wall thickening is most pronounced along its posterior and superior margins, likely reactive. Hysterectomy. Atherosclerosis of the aorta without aneurysm. There are a few prominent subcentimeter periportal and precaval lymph nodes measuring up to 9 mm, likely reactive. No bowel obstruction. 2.4 cm gastric fundal diverticulum. Colonic diverticulosis with wall thickening within the mid to distal sigmoid and rectosigmoid junction. Peripherally enhancing multiloculated fluid collection in the midline pelvis measures 5.9 x 5.3 x 4.0 cm interposed between the rectosigmoid colon and urinary bladder extending towards the vaginal cuff. A sinus tract is noted on image 306 extending towards the sigmoid colon. Moderate colonic fecal retention. Appendectomy. Degenerative changes of the spine, pelvis and hips. No acute fracture or destructive bone lesion identified. IMPRESSION: 1. Colonic diverticulosis with findings suggestive of acute diverticulitis. Additionally, there is a multiloculated fluid collection within the midline pelvis suggestive of an abscess measuring up to 5.9 cm. Probable associated sinus tract extends from the abscess towards the sigmoid. Additionally, the abscess abuts the vaginal cuff. Correlate with clinical exam findings and patient history to exclude a fistulous connection with the vagina. 2. Moderate colonic fecal retention without obstruction. 3. Additional findings as above. ACT 112: Negative or not required by law. The above report was generated using voice recognition software. It may contain grammatical, syntax or spelling errors. Electronically signed by: Travis Soto M.D. 04/10/2022 1:14 PM Hospital Course (1) Diverticulitis of intestine with abscess: Pt is a 71 yo female with PMH of DM, recent lyme disease, RA, asthma, and anxiety presenting to the hospital with 5 weeks of constipation and associated nausea and abdominal pain. Diverticulitis of intestine with abscess -Patient is currently afebrile, hemodynamically stable, and stable on RA - WBC 12.86 -CTAP showed complicated diverticulitis with 5.9 cm abscess and possible fistula tract to the vagina, moderate stool burden in colon -Was given 1 dose of Zosyn in the ED, will continue q6h here moving forward -Will continue IV fluids while NPO with Lactated Ringer's at 100 mL/hr -IV tylenol and Morphine given for pain - last dose of 4 mg morphine given at 8 AM with spot 1 mg dose at 11 AM - NPO - transfer to [facility] of [facility] for IR intervention COVID-19 -States she had covid over 1 month ago -No current symptoms, stable on RA -Did test positive but do not think that she is infectious at this time DM II (diabetes mellitus, type II), controlled -Noted to be on NPH and Humalog at home with possible reaction to Novolog in the past -Will monitor BSG q6h while NPO -Will continue her on NPH but will decrease her dose from 40 units AMHS to 20 units AMHS while she is NPO; this morning's dose held d/t BS of 135 -Continue with regular human insulin with correction factor of 60 and carb ration of 20 - Pharmacy thinks there is a very low risk of cross reaction between Novolog and regular human insulin with her reported adverse reaction Anxiety -Will hold xanax for now as she's NPO -If needed can order prn IV ativan but she is currently calm Rheumatoid arthritis -Not on medication at this time Lyme disease -It appears that she had at least 2-3 weeks of treatment with Doxycycline per her history -No current symptoms or skin manifestations -Will hold additional Doxycycline Asthma -Continue breathing treatments Vitamin D deficiency -Continue vitamin D (2) DM II (diabetes mellitus, type II), controlled: (3) Anxiety: (4) Rheumatoid arthritis: (5) Lyme disease: (6) COVID-19: (7) Vitamin D deficiency: Plan FEN: NPO, LR 100 mL/hr DVT ppx: SCDs Code: full Dispo: transfer to [facility] of [facility] for IR intervention Total Time Total Time Spent Total Time Spent (In Minutes): <30 Discharge Plan Discharge Items Patient Disposition: Transfer Acute Care Hospital Reason For Visit: ABDOMINAL PAIN/CONSTIPATION Discharge Diagnosis: diverticulitis w/ abscess Activity: Per Instructions section Non-emergency contact: Primary Care Provider and [employer] Runner Call non-emergency contact if: you have any medication questions, your symptoms worsen and your pain is not controlled Follow-up/Referrals: PCP,NO [Physician] - Diet: Nothing by Mouth Addtl Attending Provider Instructions: Pt is a 71 yo female with PMH of DM, recent lyme disease, RA, asthma, and anxiety presenting to the hospital with 5 weeks of constipation and associated nausea and abdominal pain. Diverticulitis of intestine with abscess -Patient is currently afebrile, hemodynamically stable, and stable on RA - WBC 12.86 -CTAP showed complicated diverticulitis with 5.9 cm abscess and possible fistula tract to the vagina, moderate stool burden in colon -Was given 1 dose of Zosyn in the ED, will continue q6h here moving forward -Will continue IV fluids while NPO with Lactated Ringer's at 100 mL/hr -IV tylenol and Morphine given for pain - last dose of 4 mg morphine given at 8 AM with spot 1 mg dose at 11 AM - NPO - transfer to [facility] for IR intervention COVID-19 -States she had covid over 1 month ago -No current symptoms, stable on RA -Did test positive but do not think that she is infectious at this time DM II (diabetes mellitus, type II), controlled -Noted to be on NPH and Humalog at home with possible reaction to Novolog in the past -Will monitor BSG q6h while NPO -Will continue her on NPH but will decrease her dose from 40 units AMHS to 20 units AMHS while she is NPO; this morning's dose held d/t BS of 135 -Continue with regular human insulin with correction factor of 60 and carb ration of 20 - Pharmacy thinks there is a very low risk of cross reaction between Novolog and regular human insulin with her reported adverse reaction Anxiety -Will hold xanax for now as she's NPO -If needed can order prn IV ativan but she is currently calm Rheumatoid arthritis -Not on medication at this time Lyme disease -It appears that she had at least 2-3 weeks of treatment with Doxycycline per her history -No current symptoms or skin manifestations -Will hold additional Doxycycline Asthma -Continue breathing treatments Vitamin D deficiency -Continue vitamin D FEN: NPO, LR 100 mL/hr DVT ppx: SCDs Code: full Dispo: transfer to [facility] of [facility] for IR intervention Pending Studies at Discharge: No Stand-Alone Forms: My [facility] Skilled Items Patient informed of condition?: Yes DNR: No Discharge Level of Care: Other Communicable Disease: No Discharge Prognosis: Stable Lines: None Urinary Catheter: No Medications and DC Order Prescriptions: Continued fluticasone propion-salmeterol 500-50 mcg/dose blister with device 1 ea INHALATION AMPM Rx Instructions: 12 hours apart alprazolam 0.5 mg tablet 0.5 mg PO QAM PRN (Reason: Anxiety) insulin lispro [Humalog U-100 Insulin] 100 unit/mL solution 0 unit subcut UD Rx Instructions: inject 10 units with breakfast and 26 with supper oxycodone-acetaminophen 10-325 mg tablet 1 - 2 tab PO Q6 PRN (Reason: Pain) ergocalciferol (vitamin D2) [Vitamin D2] 1,250 mcg (50,000 unit) capsule 1,250 mcg PO .SUNDAYS alprazolam 0.5 mg tablet 0.5 mg PO HS Humulin N NPH U-100 Insulin 100 unit/mL suspension 40 unit SUBCUT AMPM furosemide 40 mg tablet 40 mg PO DAILY PRN (Reason: Fluid Retention) ibuprofen [IBU] 800 mg tablet 800 mg PO BID PRN (Reason: arthritis pain) potassium chloride 10 mEq tablet extended release 10 meq PO DAILY PRN (Reason: if taking furosemide) Discharge Orders: Discharge Order (Routine); Ordered 04/11/22 Ordered By: Brandy England Admission Data Admit Date/Time: 04/10/22 20:46 Attending Provider: Bryant Abreu Admit Provider: Angel Holland Primary Care Provider: Kimmie Porter Other Providers: Angel Holland Other Interventions: Discharge Summary Assessment (RN) Last Done: 04/11/22 13:43 Supervising Physician Co-Signing Physician Notes I personally examined the patient and verified all mckeon points of history and exam, discussed case, and agree with decision making with Dr England Ongoing abdominal pain. [facility]. Vitals noted, in general she is awake and alert pleasant no distress. HEENT normocephalic atraumatic mucous membranes moist. Breathing unlabored no accessory muscle use good effort. Skin shows no rashes no pallor or icterus. Abdomen is soft but she has diffuse lower abdominal tenderness with voluntary guarding no rebound no rigidity. Diverticulitis with fairly sizable abscess and sepsis (SIRS being white count and heart rate) present on admissionstable on antibioticsbut abscess large enough it would be very unlikely to get better with antibiotics alone. Set up for interventional radiology for drainage at [facility] [place]. Stable for transfer. Otherwise as above Resident Activity Tracking Resident Involvement: Resident Care Provided Care Provided: Adult Hospital Medicine
--- NOTE | 2022-04-11 19:15 | Billing Data ---
Date of Service April 11, 2022 Coding Level of Care Code D/C DAY MANAGEMENT <30 MINS
--- NOTE | 2022-04-12 23:20 | Electrocardiogram Report ---
Test Reason : Blood Pressure : / mmHG Vent. Rate : 090 BPM Atrial Rate : 090 BPM P-R Int : 144 ms QRS Dur : 070 ms QT Int : 362 ms P-R-T Axes : 072 -19 069 degrees QTc Int : 442 ms Normal sinus rhythm Septal infarct , age undetermined Abnormal ECG No previous ECGs available Confirmed by Damian Perdue ([id number]) on 04/12/2022 11:20:07 PM Referred By: REFERRED SELF Confirmed By:Damian Perdue
== END 2022-04-11 14:29 | disposition short-term general hospital (02) | DRG 391 ==
LOC: ED 11:26 → 2S 20:46 → SUATTDRO 20:46 → 2S 22:07